=== PATIENT | male | born 1995 | race African-American/Black ===

== ENCOUNTER 2018-01-31 19:03 | Emergency (ER) | payer OTHER ==
[2018-01-31 19:16] VITALS: BP 123/71
--- NOTE | 2018-01-31 20:55 | ED Physician Documentation ---
PD HPI SKIN - Stated complaint Stated Complaint: L EYE BROW SWELLING - Chief complaint Chief Complaint: Wound - History obtained from History obtained from: Patient - History of Present Illness Timing - onset: How many days ago (several) Timing - duration: Days Timing - details: Gradual onset Location: Face (left lateral supraorbital area with small tender patch/blister, that has wept clear/yellow and is enlargin in the area. No tenderness prior to the rash.) Quality / character: Painful, Discolored (red), Swelling Associated symptoms: No: Fever, Myalgias Review of Systems Constitutional: denies: Fever, Chills, Myalgias Eyes: denies: Loss of vision, Decreased vision, Photophobia Nose: denies: Rhinorrhea / runny nose, Congestion, Sinus pressure / pain Throat: denies: Dental pain / toothache, Oral lesions / sores, Sore throat Cardiac: denies: Chest pain / pressure Endocrine: denies: Weight loss, Easy bruising / bleeding, Swollen lymph nodes PD PAST MEDICAL HISTORY - Past Medical History Past Medical History: No Endocrine/Autoimmune: None GI: None 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 01/31/18 - Allergies Allergies/Adverse Reactions: Allergies Allergy/AdvReac Type Severity Reaction Status Date / Time No Known Drug Allergies Allergy Verified 01/31/18 19:13 - Social History Does the pt smoke?: No Smoking Status: Never smoker Does the pt drink ETOH?: No Does the pt have substance abuse?: No - Immunizations Immunizations are current?: Yes - POLST Patient has POLST: No PD ED PE NORMAL - Vitals Vital signs reviewed: Yes - General General: Alert and oriented X 3, No acute distress, Well developed/nourished - HEENT HEENT: PERRL, EOMI, Ears normal, Moist mucous membranes, Pharynx benign, Dentition benign - Neck Neck: Supple, no meningeal sign, No adenopathy - Cardiac Cardiac: RRR, No murmur - Respiratory Respiratory: Clear bilaterally - Back Back: No CVA TTP - Derm Derm: Normal color, Other (patch of superficially blistering rash, with clear to yellow base. Mild local redness. No other patches seen. ) - Neuro Neuro: Alert and oriented X 3, outside property agent 2-12 intact, No motor deficit, Normal speech , Other Results - Vitals Vitals: Oxygen O2 Source Room air PD MEDICAL DECISION MAKING - ED course Complexity details: considered differential (looks like patch of impetigo left eyebrow area. Does not have pattern nor prior sensitivity to suggest shingles. ) , d/w patient - Sepsis Event Vital Signs: Oxygen O2 Source Room air Departure - Departure Disposition: 01 Home, Self Care Clinical Impression: Facial infection, Impetigo Condition: Stable Record reviewed to determine appropriate education?: Yes Instructions: ED Staph Infec Abx Tx Only Follow-Up: JADEN RAPHAEL MD [Primary Care Provider] - Prescriptions: Doxycycline Monohydrate 100 mg PO BID #14 tablet Mupirocin 1 applic TP TID #15 oint...g. Comments: I think this looks more like a bacterial infection called impetigo. Treated with mupirocin topical antibiotic 2-3 times a day after cleaning with soap and water. Also oral antibiotic doxycycline twice daily for a week. Recheck if not improved to gone over the next few days. If you get more of this into a larger pattern on the face, then we could consider viral infection such as shingles but it really does not fit the pattern right now. Discharge Date/Time: 01/31/18 21:58
[2018-01-31] MEDS ORDERED: DOXYCYCLINE 100 MG TABLET PO STA (21:38)
[2018-01-31] MEDS ORDERED: MUPIROCIN 2% OINT 1 GM TOP STA (21:38)
== END 2018-01-31 21:58 | disposition home or self-care (01) ==
LOC: ED 19:03
DX: B99.9 Unspecified infectious disease (principal); L01.00 Impetigo, unspecified
CPT/HCPCS: 99283; A9270

== ENCOUNTER 2020-04-27 10:47 | Emergency (ER) | payer MEDICAID, OTHER ==
[2020-04-27 12:13] VITALS: BP 124/54
--- NOTE | 2020-04-27 15:01 | ED Physician Documentation ---
History of Present Illness - Stated complaint Stated Complaint: GONZALEZ, LOSS OF SMELL - Chief complaint Chief Complaint: Neuro - History obtained from History obtained from: Patient - Additonal information Additional information: 25-year-old man presents with request for Covid test due to new symptoms of anosmia, body aches, and mild frontal bilateral nonradiating aching headache X 2-3 days, constant and progressively worsening. Denies fever, cough, shortness of breath, diarrhea, abdominal pain. No other neurological deficits. Review of Systems Ten Systems: 10 systems reviewed and negative Constitutional: reports: Myalgias, Fatigue. 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 01/31/18 - Allergies Allergies/Adverse Reactions: Allergies Allergy/AdvReac Type Severity Reaction Status Date / Time No Known Drug Allergies Allergy Verified 04/27/20 11:05 - Social History Does the pt smoke?: No Smoking Status: Never smoker Does the pt drink ETOH?: Yes Does the pt have substance abuse?: No - Immunizations Immunizations are current?: Yes - POLST Patient has POLST: No PD ED PE NORMAL - Vitals Vital signs reviewed: Yes - General General: Alert and oriented X 3 - HEENT HEENT: Atraumatic, PERRL, EOMI - Neck Neck: Supple, no meningeal sign - Cardiac Cardiac: RRR - Respiratory Respiratory: No respiratory distress, Clear bilaterally - Abdomen Abdomen: Normal bowel sounds, Non tender, Non distended - Male Male : Deferred - Rectal Rectal: Deferred - Back Back: No CVA TTP - Derm Derm: Normal color - Extremities Extremities: No edema - Neuro Neuro: Alert and oriented X 3 - Psych Psych: Normal mood, Normal affect Results - Vitals Vitals: Vital Signs - 24 hr 04/27/20 04/27/20 04/27/20 11:05 11:32 12:13 Temperature 36.6 C 37.0 C 36.7 C Heart Rate 73 67 68 Respiratory 16 16 18 Rate Blood Pressure 123/65 124/49 L 124/54 L O2 Saturation 99 98 100 Oxygen O2 Source Room air PD MEDICAL DECISION MAKING - ED course Complexity details: d/w patient ED course: 25-year-old man presented for Covid test with symptoms concerning for Covid. Extensive education about hand hygiene and quarantine given. strict return precautions given. Covid test administered and patient will follow it up on the patient health portal. Departure - Departure Disposition: 01 Home, Self Care Clinical Impression: Anosmia, Body aches, Headache Condition: Good Instructions: ED Headache Tension Comments: You have a Covid test pending. You need to self quarantine until the result is done and negative. Do not leave your house. Do not get near anybody. The results should be done in 48 to 72 hours. We will call with a positive result, the fastest way to get a negative result for confirmation though is to go to the hospital website at [email or web address], click on the my [employer] tab and sign up for the patient portal. If any friends or family get sick and would like to have a Covid test done, but do not have signs or symptoms that would necessitate being hospitalized, we encourage testing through our coronavirus swabbing station, call [phone] to schedule an appointment Discharge Date/Time: 04/27/20 12:24
== END 2020-04-27 12:24 | disposition home or self-care (01) ==
LOC: ED 10:47
DX: U07.1 COVID-19 (principal); R43.0 Anosmia; R51.9 Headache, unspecified; M79.10 Myalgia, unspecified site
CPT/HCPCS: 99283

== ENCOUNTER 2020-06-17 21:05 | Outpatient (CLI) | payer MEDICAID ==
--- OUTSIDE RECORDS SUMMARY | 2020-06-24 00:54 | EXTERNAL MEDICAL SUMMARY RPT | Continuity of Care Document ---
:1995 Demographics Phone Unavailable Preferred Language Unknown Marital Status Unknown Sikhism Affiliation Unknown Race Unknown Ethnic Group Unknown Author Organization [place] Address [address] [place] [address] Phone Care Team Providers Name Role Phone IJEOMA Unavailable Unavailable Problems date description facility 2018-01-31 19:03 UNSPECIFIED INFECTIOUS DISEASE [facility] 2018-01-31 19:03 IMPETIGO, UNSPECIFIED [facility] 2018-01-31 19:03 LOCALIZED SWELLING, [place], i [facility] UNSPECIFIED 2020-04-27 10:47 MYALGIA, UNSPECIFIED SITE [facility] 2020-04-27 10:47 ANOSMIA [facility] 2020-04-27 10:47 HEADACHE, UNSPECIFIED [facility] 2020-04-27 10:47 COVID-19 [facility] Allergies date description facility CODEINE [facility] pneumonia vaccine [facility] Latex [facility] Bee Stings [facility] SULFA (SULFONAMIDE ANTIBIOTICS) [facility] NO KNOWN ALLERGIES [facility] BUPROPION HCL [facility] NUT - UNSPECIFIED [facility] PREDNISONE [facility] ATORVASTATIN [facility] CARBIDOPA-LEVODOPA [facility] ADHESIVE TAPE-SILICONES [facility] No Known Drug Allergies [facility] CHLORHEXIDINE [facility] Results test status date ordered by attending specimen syl e null F 2020-04-27 [email or web address] Crystal Garcia 04-27 12:34:00 12:15:00 facility observation status value reference units lab abnor mal line notes range code [facility] F POSITIVE unknown [facility] RN Infectio n Preventi on by Sharlene terri bal M.T.(NANNETTE ) at [phone] 04/30/20 . [place] [facility] [place]ene [place] M.T.([place] ) at [phone] 04/30/20 . See separate report - Report scanned to Patient' s EMR. [facility] Social History date description facility [id number]
== END 2020-06-17 21:06 | disposition home or self-care (01) ==
LOC: LAB 21:05
PROVIDERS: ATTEND Obstetrics & Gynecology
DX: Z13.79 Encounter for other screening for genetic and chromosomal anomalies (principal)
CPT/HCPCS: 81257; 81599

== ENCOUNTER 2020-11-19 09:47 | Emergency (ER) | payer OTHER, MEDICAID ==
[2020-11-19 09:58] VITALS: BP 137/61
--- OUTSIDE RECORDS SUMMARY | 2020-11-19 10:19 | EXTERNAL MEDICAL SUMMARY RPT | Continuity of Care Document ---
:1995 Demographics Phone Unavailable Preferred Language Unknown Marital Status Unknown Advent Affiliation Unknown Race Unknown Ethnic Group Unknown Author Organization [facility] Address [address] [place] [address] Phone Allergies Encounters Medications Problems Results
--- NOTE | 2020-11-19 10:38 | ED Physician Documentation ---
PD HPI HEENT - Stated complaint Stated Complaint: EAR PX - Chief complaint Chief Complaint: Heent - History obtained from History obtained from: Patient - Additional information Additional information: He works on the [employer]. A little flying growler flew overhead and he felt a pop and pressure in the left ear with decreased hearing. Right ear is fine. No URI symptoms. 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 01/31/18 - Allergies Allergies/Adverse Reactions: Allergies Allergy/AdvReac Type Severity Reaction Status Date / Time No Known Drug Allergies Allergy Verified 11/19/20 09:58 - Social History Does the pt smoke?: No Smoking Status: Never smoker Does the pt drink ETOH?: Yes Does the pt have substance abuse?: No - Immunizations Immunizations are current?: Yes - POLST Patient has POLST: No PD ED PE NORMAL - Vitals Vital signs reviewed: Yes - General General: Alert and oriented X 3, No acute distress - HEENT HEENT: Other (Left TM has serous otitis, no purulence, I do not see a TM rupture.) - Neuro Neuro: Alert and oriented X 3, Normal speech Results - Vitals Vitals: Vital Signs - 24 hr 11/19/20 09:56 Temperature 35.9 C L Heart Rate 108 H Respiratory 14 Rate Blood Pressure 137/61 H O2 Saturation 98 Oxygen O2 Source Room air PD MEDICAL DECISION MAKING - ED course ED course: He has serous otitis, I do not see a rupture. Advised Sudafed and conservative care and follow-up with ENT. Departure - Departure Disposition: 01 Home, Self Care Clinical Impression: Acute serous otitis media of left ear Qualifiers: Recurrence: non-recurrent Qualified Code(s): H65.02 - Acute serous otitis media, left ear Condition: Good Record reviewed to determine appropriate education?: Yes Instructions: ED Otitis Media Serous Adult Comments: Over the Counter Sudafed as needed for the pressure. If not better in a week you should follow-up with an ENT specialist. The closest is in [facility] ear nose and throat, the phone number is [phone].
== END 2020-11-19 10:59 | disposition home or self-care (01) ==
LOC: ED 09:47
DX: H65.02 Acute serous otitis media, left ear (principal)
CPT/HCPCS: 99281; 99283

== ENCOUNTER 2020-12-01 11:11 | Emergency (ER) | payer MEDICAID ==
--- NOTE | 2020-12-01 11:36 | ED Physician Documentation ---
PD HPI HEENT - Stated complaint Stated Complaint: LT EAR PX/RELEASE TO WORK - Chief complaint Chief Complaint: Heent - History obtained from History obtained from: Patient - History of Present Illness Timing - onset: How many weeks ago (2) Timing - duration: Weeks (2) Timing - details: Now resolved (he had decreased hearing and some popping sounds in ears 2 weeks ago. Some sinus congestion. Seen in ER and Dx with serous otitis. Told to use afrin type sprays and OTC antihistamines. Patient says used for few days. [place] better. Was returned to work but today his boss said he needs return work note) Location: Right ear, Left ear Worsens: No: Swalllowing Associated symptoms: No: Fever, Swollen nodes, Facial swelling, Headache Recently seen: Emergency Dept (12 days ago) Review of Systems Constitutional: denies: Fever, Chills Ears: denies: Loss of hearing, Ear pain, Drainage/discharge Nose: reports: Sinus pressure / pain. 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 Derm: None - Past Surgical History Past Surgical History: No - Present Medications Home Medications: Ambulatory Orders Medication Instructions Recorded Confirmed Cetirizine [ZyrTEC] 10 mg PO DAILY #30 tablet 12/01/20 - Allergies Allergies/Adverse Reactions: Allergies Allergy/AdvReac Type Severity Reaction Status Date / Time No Known Drug Allergies Allergy Verified 12/01/20 11:23 - Social History Does the pt smoke?: No Smoking Status: Never smoker Does the pt drink ETOH?: Yes Does the pt have substance abuse?: No - Immunizations Immunizations are current?: Yes - POLST Patient has POLST: No PD ED PE NORMAL - Vitals Vital signs reviewed: Yes - General General: Alert and oriented X 3, No acute distress, Well developed/nourished - HEENT HEENT: Ears normal (minimal fluid behind eardrums both sides, without redness nor purulence. Canals are normal. ), Moist mucous membranes, Pharynx benign - Neck Neck: Supple, no meningeal sign, No adenopathy - Derm Derm: Normal color, Warm and dry, No rash Results - Vitals Vitals: Vital Signs - 24 hr 12/01/20 12/01/20 11:19 12:13 Temperature 36.6 C Heart Rate 72 60 Respiratory 16 18 Rate Blood Pressure 120/49 L 128/56 L O2 Saturation 99 100 Oxygen O2 Source Room air PD MEDICAL DECISION MAKING - ED course Complexity details: reviewed old records, considered differential (seems likely environmental allergens with sinus and eustacian tube congestion. Okay for him to be working. No vertigo nor lightheaded. ), d/w patient Departure - Departure Disposition: 01 Home, Self Care Clinical Impression: Serous otitis media Qualifiers: Chronicity: unspecified Laterality: bilateral Qualified Code(s): H65.93 - Unspecified nonsuppurative otitis media, bilateral Condition: Stable Record reviewed to determine appropriate education?: Yes Prescriptions: Cetirizine [ZyrTEC] 10 mg PO DAILY #30 tablet Comments: There is the appearance of still some fluid behind eardrums but it does not look pressured nor infected. You could use some Cetirizine antihistamine daily for this, or no particular treatment needed if you are feeling okay. You are okay for working with this. It should not hinder your function. Forms: Activity restrictions Discharge Date/Time: 12/01/20 12:22
[2020-12-01 12:13] VITALS: BP 128/56
== END 2020-12-01 12:22 | disposition home or self-care (01) ==
LOC: ED 11:11
DX: H65.93 Unspecified nonsuppurative otitis media, bilateral (principal)
CPT/HCPCS: 99282; 99283

== ENCOUNTER 2021-05-31 10:01 | Emergency (ER) | payer MEDICAID ==
--- NOTE | 2021-05-31 10:34 | ED Physician Documentation ---
PD HPI URI - Stated complaint Stated Complaint: S/S COVID-19 - Chief complaint Chief Complaint: General - History obtained from History obtained from: Patient - History of Present Illness Timing - onset: How many days ago (2-3) Timing duration: Days (2-3) Timing details: Gradual onset Associated symptoms: Chills, Nasal congestion, Swollen nodes, Dry cough. No: Fever, Dyspnea, NVD Contributing factors: No: Sick contact, Travel, Unimmunized Similar symptoms before: Diagnosis (feeling similar to prior COVID symptoms when had it last spring.) Recently seen: Not recently seen Review of Systems Constitutional: reports: Chills, Myalgias Nose: reports: Rhinorrhea / runny nose, Congestion Throat: reports: Sore throat Cardiac: denies: Chest pain / pressure, Palpitations Respiratory: reports: Dyspnea, Cough, Wheezing GI: denies: Abdominal Pain, Vomiting, Diarrhea Skin: denies: Rash, Lesions Neurologic: reports: Generalized weakness, Headache. 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 Derm: None - Past Surgical History Past Surgical History: No - Present Medications Home Medications: Ambulatory Orders Medication Instructions Recorded Confirmed Cetirizine [ZyrTEC] 10 mg PO DAILY #30 tablet 12/01/20 Albuterol Sulf [Ventolin Hfa 2 - 3 puffs INH Q4HR PRN #1 inhaler 05/31/21 Inhaler] Amoxicillin 500 mg PO TID #15 cap 05/31/21 dexAMETHasone [Decadron] 4 mg PO DAILY #5 tablet 05/31/21 - Allergies Allergies/Adverse Reactions: Allergies Allergy/AdvReac Type Severity Reaction Status Date / Time No Known Drug Allergies Allergy Verified 05/31/21 10:20 - Social History Does the pt smoke?: No Smoking Status: Never smoker Does the pt drink ETOH?: Yes Does the pt have substance abuse?: No - Family History Family history: reports: Non contributory. denies: Venous thromboembolism - Immunizations Immunizations are current?: Yes - POLST Patient has POLST: No PD ED PE NORMAL - Vitals Vital signs reviewed: Yes - General General: Alert and oriented X 3, No acute distress, Well developed/nourished - HEENT HEENT: Ears normal, Moist mucous membranes, Pharynx benign - Neck Neck: Supple, no meningeal sign, No adenopathy - Cardiac Cardiac: RRR, No murmur - Respiratory Respiratory: Clear bilaterally - Abdomen Abdomen: Normal bowel sounds, Soft, Non tender Results - Vitals Vitals: Oxygen O2 Source Room air - Labs Labs: Laboratory Tests 05/31/21 10:17 Coronavirus (PCR) NEGATIVE PD MEDICAL DECISION MAKING - ED course Complexity details: reviewed old records, reviewed results, considered differential (can test for COVID though consider RSV or Parainfluenza r=such. ), d/w patient Departure - Departure Disposition: Home, Self Care Clinical Impression: Upper respiratory infection Qualifiers: URI type: unspecified URI Qualified Code(s): J06.9 - Acute upper respiratory infection, unspecified Condition: Stable Record reviewed to determine appropriate education?: Yes Instructions: ED Upper Resp Infec Abx Tx Prescriptions: Albuterol Sulf [Ventolin Hfa Inhaler] 2 - 3 puffs INH Q4HR PRN #1 inhaler PRN Reason: Shortness Of Air/Wheezing Amoxicillin 500 mg PO TID #15 cap dexAMETHasone [Decadron] 4 mg PO DAILY #5 tablet Comments: There is likely represents a viral upper respiratory infection. However the timing and that worsening may suggest some bacterial component as well. Use the albuterol inhaler 2 to 3 puffs 4 times a day for the next several days to week as well as the Decadron steroid anti-inflammatory to reduce airway inflammation. Add amoxicillin antibiotic 3 times a day for 5 days for potential bacterial component. Regular viral illnesses can cause your symptoms as well as Covid. Your Covid test should result the next day or 2. Stay well-hydrated. Tylenol or ibuprofen if needed for fevers or pains. I transmitted your prescriptions to [facility] pharmacy. You have a Covid test pending. You need to self quarantine until the result is done and negative. Do not leave your house. Do not get near anybody. The results should be done in 48 to 72 hours, but sometimes longer. We will call with a positive result, the fastest way to get a negative result for confirmation though is to go to the hospital website at [email or web address], click on the my [employer] tab and sign up for the patient portal. If any friends or family get sick and would like to have a Covid test done, but do not have signs or symptoms that would necessitate being hospitalized, we encourage testing throughone of the local pharmacies or the Health Department. Call them to schedule an appointment. Discharge Date/Time: 05/31/21 12:30
[2021-05-31] MEDS ORDERED: AMOXICILLIN 250 MG CAPSULE PO STA (11:24)
[2021-05-31] MEDS ORDERED: ALBUTEROL 1 PUFF INH STA (11:24)
[2021-05-31] MEDS ORDERED: CHERRY SYRUP 10 ML UDC PO ONE (11:24)
[2021-05-31] MEDS ORDERED: DEXAMETHASONE 10 MG/ML VIAL PO STA (11:24)
[2021-05-31 12:25] VITALS: BP 130/88
== END 2021-05-31 12:30 | disposition home or self-care (01) ==
LOC: ED 10:01
DX: J06.9 Acute upper respiratory infection, unspecified (principal); Z20.822 Contact with and (suspected) exposure to COVID-19
CPT/HCPCS: 87635; 94640; 99283; A9270

== ENCOUNTER 2021-07-04 13:53 | Emergency (ER) | payer MEDICAID ==
[2021-07-04 14:02] VITALS: BP 121/58
--- NOTE | 2021-07-04 14:20 | ED Physician Documentation ---
History of Present Illness - Stated complaint Stated Complaint: FEVER/CHILLS/THROAT PX - Chief complaint Chief Complaint: Fever - History obtained from History obtained from: Patient - History of Present Illness Timing: How many days ago (3) Pain level max: 4 Pain level now: 3 - Additonal information Additional information: Patient is a 26-year-old male who states that he has been sick for the past 2 to 3 days. Fever, body aches, cough, congestion, sore throat. Nothing makes it better or worse. Has not been taking anything at home. Review of Systems Constitutional: reports: Fever Nose: reports: Rhinorrhea / runny nose, Congestion Throat: reports: Sore throat Respiratory: reports: Cough GI: denies: Abdominal Pain, Nausea, Vomiting, Diarrhea Skin: denies: Rash Musculoskeletal: denies: Neck pain, Back pain Neurologic: reports: Headache (Gradual onset, holoacranial) PD PAST MEDICAL HISTORY - Past Medical History Cardiovascular: None Respiratory: None Neuro: Migraines Endocrine/Autoimmune: None GI: None STOCK FITTER: None : None Derm: None - Past Surgical History Past Surgical History: No - Present Medications Home Medications: Ambulatory Orders Medication Instructions Recorded Confirmed Benzonatate [Tessalon] 200 mg PO TID PRN #30 cap 07/04/21 Cetirizine HCl/Pseudoephedrine 1 each PO BID PRN #30 ea 07/04/21 [Zyrtec-D Tablet] - Allergies Allergies/Adverse Reactions: Allergies Allergy/AdvReac Type Severity Reaction Status Date / Time No Known Drug Allergies Allergy Verified 07/04/21 13:59 - Social History Does the pt smoke?: No Smoking Status: Never smoker Does the pt drink ETOH?: Yes Does the pt have substance abuse?: No - Immunizations Immunizations are current?: Yes - POLST Patient has POLST: No PD ED PE NORMAL - Vitals Vital signs reviewed: Yes - General General: Alert and oriented X 3, No acute distress - HEENT HEENT: Moist mucous membranes - Neck Neck: Supple, no meningeal sign, No bony TTP - Cardiac Cardiac: RRR - Respiratory Respiratory: No respiratory distress, Clear bilaterally - Derm Derm: Warm and dry - Neuro Neuro: Alert and oriented X 3, lead bi developer 2-12 intact, No motor deficit, No sensory deficit, Normal speech - Psych Psych: Normal mood, Normal affect Results - Vitals Vitals: Vital Signs - 24 hr 01/23/22 13:59 Temperature 38.4 C H Heart Rate 100 Respiratory 19 Rate Blood Pressure 121/58 L O2 Saturation 96 Oxygen O2 Source Room air PD MEDICAL DECISION MAKING - ED course Complexity details: considered differential, d/w patient ED course: Patient is well-appearing, nontoxic. Mild fever. We will continue supportive care at home. COVID testing performed. No indication for x-ray. Lungs are clear to auscultation bilaterally. Normal oropharynx. No evidence of strep. Patient counseled regarding signs and symptoms for which I believe and urgent re-evaluation would be necessary. Patient with good understanding of and agreement to plan and is comfortable going home at this time This document was made in part using voice recognition software. While efforts are made to proofread this document, sound alike and grammatical errors may occur. Departure - Departure Disposition: Home, Self Care Clinical Impression: Viral URI Condition: Good Instructions: ED Viral Syndrome Follow-Up: your,doctor as needed [Other] Prescriptions: Benzonatate [Tessalon] 200 mg PO TID PRN #30 cap PRN Reason: Cough Cetirizine HCl/Pseudoephedrine [Zyrtec-D Tablet] 1 each PO BID PRN #30 ea PRN Reason: nasal congestion Comments: Please follow-up with your doctor as needed for further care. Stay home and rest. Drink plenty of fluids. Your prescriptions were sent to [facility] in [place]. You have a Covid test pending. You need to self quarantine until the result is done and negative. The results should be done in 24-48 hours. We will call with a positive result, the fastest way to get a negative result for confirmation though is to go to the hospital website at [email or web address], click on the my [facility] tab and sign up for the patient portal. If any of your friends and/or family need to be tested, they can call the hospital at [phone] for an appointment to have their Covid test.
== END 2021-07-04 14:32 | disposition home or self-care (01) ==
LOC: ED 13:53
DX: J06.9 Acute upper respiratory infection, unspecified (principal); Z20.822 Contact with and (suspected) exposure to COVID-19
CPT/HCPCS: 99283